=== PATIENT | male | born 1970 | race Caucasian/White ===

== ENCOUNTER 2018-09-04 19:06 | Emergency (ER) | payer OTHER | END 2018-09-04 19:57 | disposition home or self-care (01) | LOC: EDH 19:06 | DX: F41.9 Anxiety disorder, unspecified (principal); F31.9 Bipolar disorder, unspecified; F43.10 Post-traumatic stress disorder, unspecified; Z88.0 Allergy status to penicillin; Z72.0 Tobacco use ==